=== PATIENT | female | born 1965 | race Caucasian/White ===

== ENCOUNTER 2022-10-03 15:30 | Observation (INO) ==
--- NOTE | 2022-10-03 15:49 | Emergency Department Note ---
Impression & Plan Hypoxia, COPD (chronic obstructive pulmonary disease), Alcohol abuse, Hyperbilirubinemia, Generalized weakness ED Provider Note NAME: RICARDO ARANA AGE: 57 SEX: F : 1965 ARRIVES VIA: Walk-In INFORMANT: Patient, ED PROVIDER(S): Will Greene MD CHIEF COMPLAINT: Weakness, vomiting MEDICAL DECISION MAKING: Patient presents due to concern for weakness and vomiting in the setting of stopping drinking earlier this month. Next IV was established blood work obtained patient was ordered IV fluids IV thiamine folic acid. B12 levels were ordered. Chest x-ray obtained as the patient was at lower oxygen levels at 90% at rest. Patient was placed on small mount of supplemental nasal cannula in triage. Patient was noted to be hypoxemic in the high 80s. This is improved with the supplemental oxygen. Patient was ordered DuoNeb treatments IV fluids as well as steroids and doxycycline. Patient's blood work shows mild white count of 11 with a normal H&H and platelet count. Patient's kidney function is unremarkable. Bilirubin elevated greater than 4. Mild hypokalemia and hyponatremia along with an AST of 68. Of note the patient did have an abnormal EKG but no priors for comparison patient has no chest pains or shortness of breath. Troponin is initially negative. Given the patient's presentation findings weakness and hypoxia I did speak with the on- call hospital service Dr. Vitale and the patient was admitted to the medicine service. Critical Care: I have personally spent 43 minutes of critical care time in direct management of this patient. This includes bedside care, interpretation of diagnostic studies, and testing, discussion with consultants, patient, and family members, and other require inpatient management activities. This 43 minutes is in excess of all separately billable procedures. Prior /Outside records reviewed: I reviewed a pulmonology visit note from July [address] Colin. Differential diagnosis: Infection, dehydration, metabolic abnormality, hypo/hyperglycemia, electrolyte disturbance, anemia, hypoxia, cardiac sources, intracerebral event, toxicologic, neurologic, as well as other pathologies. Diagnostics, as interpreted by me: ECG: Normal sinus rhythm, rate of 93, normal IL and QRS, ST depressions noted. No prior EKGs for comparison. Cardiac monitoring: An order was placed for continuous cardiac monitoring. The monitor shows a rate of 89 with sinus rhythm. Patient was placed on pulse oximetry Medical decision rules: none Imaging studies: See below HPI: Patient presents with increasing weakness and associated fatigue in the setting of stopping drinking about 3 weeks ago. Patient states that she quit cold turkey. The patient states that for the last 2 years she typically drinks 6 Willian loggers nightly but in the last 2 months she was drinking 1/5 every 2 nights. Patient denies any chest pains or shortness of breath but has had nausea and vomiting. The patient quit smoking earlier this month as well. Patient denies any history of drug use. Patient does have a history of alcoholism and had been in and out of rehab. The patient did have a 2-year period of sobriety 4 years to 2 years ago. Patient states she will have some occasional diarrhea. The patient does complain of generalized weakness but no focal deficits. No headache or neck pain. Known h/o COPD and uses inhalers. PAST MEDICAL HISTORY: See Below PAST SURGICAL HISTORY: See Below SOCIAL HISTORY: See Below HOME MEDICATIONS: See Below ALLERGIES: See Below VITALS: See Below PHYSICAL EXAMINATION: GENERAL: Mildly ill in appearance, wearing glasses and nasal cannula in place. EYE EXAM: Normal conjunctiva. PERRL, no anisocoria and EOM's grossly intact w/o pain. OROPHARYNX: Moist mucus membranes, grossly normal dentition. NECK: Supple, no nuchal rigidity, no adenopathy, non-tender. No signs of meningismus. FROM of the neck with good chin to chest and neck extension. No stridor. LUNGS: Clear to auscultation. Normal chest wall mechanics. HEART: NSR, no MRG. ABDOMEN: Abdomen soft, non-tender, no masses, no rebound or guarding. BACK: No CVA TTP. SKIN: No rashes and no bruising. UPPER EXTREMITIES: Upper extremities are grossly normal. LOWER EXTREMITIES: Grossly normal, no edema. NEURO EXAM: A&O x3, cranial nerves II-XII grossly intact, normal speech, moves all 4 extremities. Past Med/Surg History Medical History History of anxiety History of depression Surgical History History of gastric bypass Family History Other Asthma Diabetes Denies family history of Tuberculosis Lung disease Cancer Social History Smoking Status: Former smoker Tobacco Type: Cigarettes packs per day: 0.5; Cigarettes Per Day: 5; Smoking End Date: 09/12/2022; Second Hand Exposure: No; Do You Dip or Chew Tobacco: No; Tobacco Cessation Education Requested by Patient: No Hx Alcohol Use: Yes Alcohol type: hard liquor Hx Substance Use: No Preferred Language: Amharic Communication Ability: Effective Bander And Cellophaner Helper Machine Required: No Beliefs That Will Affect Care: None Current Living Situation: Alone Other Information That Helps Us Care for You: No Feels Safe at Home: Yes Safety Concerns: Feels Safe At This Time Assistive Devices: None Allergies Allergies Allergy/AdvReac Type Severity Reaction Status Date / Time No Known Allergies Allergy Verified 07/26/22 10:39 Home Meds Home Medications Medication Instructions Recorded Confirmed albuterol sulfate 90 mcg/actuation 2 puff inhalation Q6H PRN 06/06/20 10/03/22 aerosol inhaler Shortness Of Breath levothyroxine 100 mcg capsule 88 mcg PO DAILY 06/06/20 10/03/22 biotin 10 mg tablet 10 mg PO DAILY 04/27/22 10/03/22 cyanocobalamin (vitamin B-12) 1,000 mcg PO DAILY 04/27/22 10/03/22 1,000 mcg tablet ergocalciferol (vitamin D2) 1,250 1,250 mcg PO DAILY 04/27/22 10/03/22 mcg (50,000 unit) capsule omeprazole 20 mg capsule,delayed 20 mg PO DAILY PRN Other 04/27/22 10/03/22 release vortioxetine 20 mg tablet 20 mg PO DAILY 04/27/22 10/03/22 (Trintellix) cyanocobalamin (vitamin B-12) 1,000 mcg IM DIRECTED 10/03/22 10/03/22 1,000 mcg/mL injection kit Previous Rx's Medication Instructions Recorded umeclidinium 62.5 mcg-vilanterol See Rx Instructions .Route 06/28/22 25 mcg/actuation powdr for .COMPLEX #60 ea inhalation (Anoro Ellipta) Results & Data (ED) Vital Signs Vital Signs - 24 hr 10/03/22 15:31 10/03/22 15:46 10/03/22 16:08 Temperature 36.6 C Temperature Source Temporal Artery Scan Pulse Rate 114 H 98 H Pulse Rate [Apical] 105 H Respiratory Rate 16 17 Respiratory Effort / Characteristics Non-Labored Spontaneous Non-Labored Spontaneous Respiratory Depth Normal Normal Respiratory Pattern Blood Pressure 102/74 Blood Pressure [Left Arm] 106/77 Blood Pressure Mean 83 Blood Pressure Mean [Left Arm] 86 Pulse Oximetry 90 91 Oxygen Delivery Method Room Air Room Air Oxygen Flow Rate Sepsis Recent Fever Within 48 Hours No Sepsis New/Unexplained Change in Mental Status No Sepsis Action Taken by Nursing No Action Required 10/03/22 16:31 10/03/22 17:24 10/03/22 18:44 Temperature Temperature Source Pulse Rate Pulse Rate [Apical] 85 87 Respiratory Rate 16 18 Respiratory Effort / Characteristics Non-Labored Respiratory Depth Normal Respiratory Pattern Regular Blood Pressure Blood Pressure [Left Arm] 121/81 124/93 Blood Pressure Mean Blood Pressure Mean [Left Arm] 94 103 Pulse Oximetry 94 90 96 Oxygen Delivery Method Nasal Cannula Room Air Oxygen Flow Rate 1 Sepsis Recent Fever Within 48 Hours Sepsis New/Unexplained Change in Mental Status Sepsis Action Taken by Half-Way Medications Current Medication List: was personally reviewed by me Laboratory Data Attestation: I reviewed the patient's lab results. 10/04/22 07:12 10/04/22 07:12 Lab Results 10/03/22 10/03/22 10/03/22 Range/Units 15:55 15:55 15:55 WBC 11.01 H (4.8-10.8) K/ul RBC 4.66 (4.20-5.40) M/uL Hgb 15.3 (12.0-16.0) g/dl Hct 43.5 (37.0-47.0) % MCV 93.3 (80.0-100.0) fL MCH 32.8 (25.0-34.0) pg MCHC 35.2 (32.0-36.0) g/dL RDW Std Deviation 62.9 H (36.4-46.3) fL RDW Coeff of Denia 18.4 H (11.5-14.5) % Plt Count 332 (130-400) K/uL MPV 9.2 L (9.4-12.4) fL Immature Gran % (Auto) 1.8 % Neut % (Auto) 64.4 % Lymph % (Auto) 20.6 % [place] % (Auto) 11.5 % Eos % (Auto) 0.9 % Baso % (Auto) 0.8 % Neut # (Auto) 7.08 H (1.40-6.50) K/uL Lymph # (Auto) 2.27 (1.2-3.4) K/uL [place] # (Auto) 1.27 H (0.11-0.59) K/uL Eos # (Auto) 0.10 (0-0.50) K/uL Baso # (Auto) 0.09 (0-0.2) K/uL Immature Gran # (Auto) 0.20 (0.01-0.20) K/uL Absolute Nucleated RBC 0.06 (0-0.12) K/uL Nucleated RBC % (auto) 0.5 % PT 11.4 (9.0-12.0) Seconds INR 1.0 (0.9-1.1) Sodium 134 L (136-145) mmol/L Potassium 3.1 L (3.5-5.1) mmol/L Chloride 94 L (98-107) mmol/L Carbon Dioxide 27 (21-32) mmol/L Anion Gap 13 H (3-11) BUN 7 (6-23) mg/dl Creatinine 0.60 (0.6-1.2) mg/dl Est Cr Clr Drug Dosing 126.2 ml/min Est GFR ( Amer) 117.3 ml/min Est GFR (Non-Af Amer) 101.2 ml/min BUN/Creatinine Ratio 11.7 (10-20) Glucose 131 H (70-99(Fasting)) mg/dl Calcium 9.3 (8.6-10.3) mg/dl Phosphorus 3.1 (2.5-4.9) mg/dl Magnesium 1.6 L (1.7-2.4) mg/dl Total Bilirubin 4.8 H (0.2-1.0) mg/dl AST 68 H (13-39) U/L ALT 14 (7-52) U/L Alkaline Phosphatase 145 H (34-104) U/L Total Creatine Kinase 19 L (26-192) U/L Troponin I High Sens 5.4 (0-14) pg/ml Total Protein 6.7 (6.0-8.3) gm/dl Albumin 3.4 (3.4-5.0) gm/dl Globulin 3.3 (2.5-4.0) gm/dl Albumin/Globulin Ratio 1.0 (0.9-2) Vitamin B12 (180-914) pg/ml Folate (>5.38) ng/ml Procalcitonin (0-0.5) ng/ml TSH (0.300-4.500) uIu/ml Free T4 (0.61-1.60) ng/dl SARS-CoV-2, RNA, NAAT (NEGATIVE) 10/03/22 10/03/22 10/03/22 Range/Units 15:55 15:55 15:55 WBC (4.8-10.8) K/ul RBC (4.20-5.40) M/uL Hgb (12.0-16.0) g/dl Hct (37.0-47.0) % MCV (80.0-100.0) fL MCH (25.0-34.0) pg MCHC (32.0-36.0) g/dL RDW Std Deviation (36.4-46.3) fL RDW Coeff of Denia (11.5-14.5) % Plt Count (130-400) K/uL MPV (9.4-12.4) fL Immature Gran % (Auto) % Neut % (Auto) % Lymph % (Auto) % [place] % (Auto) % Eos % (Auto) % Baso % (Auto) % Neut # (Auto) (1.40-6.50) K/uL Lymph # (Auto) (1.2-3.4) K/uL [place] # (Auto) (0.11-0.59) K/uL Eos # (Auto) (0-0.50) K/uL Baso # (Auto) (0-0.2) K/uL Immature Gran # (Auto) (0.01-0.20) K/uL Absolute Nucleated RBC (0-0.12) K/uL Nucleated RBC % (auto) % PT (9.0-12.0) Seconds INR (0.9-1.1) Sodium (136-145) mmol/L Potassium (3.5-5.1) mmol/L Chloride (98-107) mmol/L Carbon Dioxide (21-32) mmol/L Anion Gap (3-11) BUN (6-23) mg/dl Creatinine (0.6-1.2) mg/dl Est Cr Clr Drug Dosing ml/min Est GFR ( Amer) ml/min Est GFR (Non-Af Amer) ml/min BUN/Creatinine Ratio (10-20) Glucose (70-99(Fasting)) mg/dl Calcium (8.6-10.3) mg/dl Phosphorus (2.5-4.9) mg/dl Magnesium (1.7-2.4) mg/dl Total Bilirubin (0.2-1.0) mg/dl AST (13-39) U/L ALT (7-52) U/L Alkaline Phosphatase (34-104) U/L Total Creatine Kinase (26-192) U/L Troponin I High Sens (0-14) pg/ml Total Protein (6.0-8.3) gm/dl Albumin (3.4-5.0) gm/dl Globulin (2.5-4.0) gm/dl Albumin/Globulin Ratio (0.9-2) Vitamin B12 > 1500 H (180-914) pg/ml Folate 10.74 (>5.38) ng/ml Procalcitonin 0.47 (0-0.5) ng/ml TSH 7.898 H (0.300-4.500) uIu/ml Free T4 1.15 (0.61-1.60) ng/dl SARS-CoV-2, RNA, NAAT (NEGATIVE) 10/03/22 Range/Units 18:20 WBC (4.8-10.8) K/ul RBC (4.20-5.40) M/uL Hgb (12.0-16.0) g/dl Hct (37.0-47.0) % MCV (80.0-100.0) fL MCH (25.0-34.0) pg MCHC (32.0-36.0) g/dL RDW Std Deviation (36.4-46.3) fL RDW Coeff of Denia (11.5-14.5) % Plt Count (130-400) K/uL MPV (9.4-12.4) fL Immature Gran % (Auto) % Neut % (Auto) % Lymph % (Auto) % [place] % (Auto) % Eos % (Auto) % Baso % (Auto) % Neut # (Auto) (1.40-6.50) K/uL Lymph # (Auto) (1.2-3.4) K/uL [place] # (Auto) (0.11-0.59) K/uL Eos # (Auto) (0-0.50) K/uL Baso # (Auto) (0-0.2) K/uL Immature Gran # (Auto) (0.01-0.20) K/uL Absolute Nucleated RBC (0-0.12) K/uL Nucleated RBC % (auto) % PT (9.0-12.0) Seconds INR (0.9-1.1) Sodium (136-145) mmol/L Potassium (3.5-5.1) mmol/L Chloride (98-107) mmol/L Carbon Dioxide (21-32) mmol/L Anion Gap (3-11) BUN (6-23) mg/dl Creatinine (0.6-1.2) mg/dl Est Cr Clr Drug Dosing ml/min Est GFR ( Amer) ml/min Est GFR (Non-Af Amer) ml/min BUN/Creatinine Ratio (10-20) Glucose (70-99(Fasting)) mg/dl Calcium (8.6-10.3) mg/dl Phosphorus (2.5-4.9) mg/dl Magnesium (1.7-2.4) mg/dl Total Bilirubin (0.2-1.0) mg/dl AST (13-39) U/L ALT (7-52) U/L Alkaline Phosphatase (34-104) U/L Total Creatine Kinase (26-192) U/L Troponin I High Sens (0-14) pg/ml Total Protein (6.0-8.3) gm/dl Albumin (3.4-5.0) gm/dl Globulin (2.5-4.0) gm/dl Albumin/Globulin Ratio (0.9-2) Vitamin B12 (180-914) pg/ml Folate (>5.38) ng/ml Procalcitonin (0-0.5) ng/ml TSH (0.300-4.500) uIu/ml Free T4 (0.61-1.60) ng/dl SARS-CoV-2, RNA, NAAT NEGATIVE (NEGATIVE) Administered Medications Heparin Sodium (Porcine) (Heparin Sod 5,000 Unit/0.5 Ml Vial) 5,000 units SQ Q12 [facility] Stop: 11/02/22 21:10 Last Admin: 10/04/22 08:32 Dose: 5,000 units Documented By: Admin: 10/03/22 22:43 Dose: 5,000 units Documented By: JOSHUA Parenteral Electrolytes (Plasma-Lyte A Ph 7.4) 1,000 mls @ 125 mls/hr IV .Q8H [facility] Stop: 11/02/22 18:59 Last Admin: 10/04/22 11:40 Dose: 125 mls/hr Documented By: Infusion: 10/04/22 11:40 Dose: 125 mls/hr Documented By: Admin: 10/04/22 04:27 Dose: 125 mls/hr Documented By: Infusion: 10/04/22 04:27 Dose: 125 mls/hr Documented By: Infusion: 10/03/22 22:43 Dose: 125 mls/hr Documented By: Infusion: 10/03/22 22:00 Dose: 0 mls/hr Documented By: Admin: 10/03/22 20:10 Dose: 125 mls/hr Documented By: MORRO Pantoprazole Sodium 40 mg/ (Syringe) 10 mls @ 5 mls/min IV DAILY@1100 [facility] Stop: 11/03/22 10:59 Last Admin: 10/04/22 11:37 Dose: 5 mls/min Documented By: TIFF Levothyroxine Sodium (Levothyroxine Sodium 88 Mcg Tablet) 88 mcg PO DAILYBB [facility] Stop: 11/03/22 06:29 Last Admin: 10/04/22 04:27 Dose: 88 mcg Documented By: JOSHUA Miscellaneous (Vortioxetine [Trintellix] 20 Mg - Order Awaiting Action) 1 each N/A QS [facility] Stop: 11/03/22 00:00 Last Admin: 10/04/22 07:22 Dose: Not Given Documented By: Admin: 10/04/22 00:34 Dose: Not Given Documented By: JOSHUA Umeclidinium/Vilanterol (Umeclidinium/Vilanterol 62.5/25mcg 7 Puffs/Inhaler) 1 puffs INH DAILY [facility] Stop: 11/03/22 08:59 Last Admin: 10/04/22 08:33 Dose: 1 puffs Documented By: AMS Discontinued Medications Albuterol (Albut/Ipratrop 3mg/0.5mg Neb 3 Ml Vial) 3 ml NEB NOW STA; Protocol Stop: 10/03/22 17:47 Last Admin: 10/03/22 18:15 Dose: 3 ml Documented By: SHIRLEY Doxycycline Hyclate (Doxycycline Hyclate 100 Mg Cap) 100 mg PO NOW STA Stop: 10/03/22 17:47 Last Admin: 10/03/22 18:15 Dose: 100 mg Documented By: SHIRLEY Sodium Chloride (Nss 1000ml) 1,000 mls @ 999 mls/hr IV .Q1H1M [facility] Stop: 10/03/22 17:15 Last Infusion: 10/03/22 17:28 Dose: 0 mls/hr Documented By: Admin: 10/03/22 16:27 Dose: 999 mls/hr Documented By: SHIRLEY Folic Acid 1 mg/ Syringe 10 mls @ 5 mls/min IV NOW STA Stop: 10/03/22 16:14 Last Admin: 10/03/22 17:50 Dose: 5 mls/min Documented By: SHIRLEY Thiamine HCl 200 mg/ Sodium (Chloride) 52 mls @ 210 mls/hr IV NOW STA Stop: 10/03/22 16:27 Last Infusion: 10/03/22 17:28 Dose: 0 mls/hr Documented By: Admin: 10/03/22 16:49 Dose: 210 mls/hr Documented By: YOHANNES Sodium Chloride (Nss 1000ml) 1,000 mls @ 999 mls/hr IV .Q1H1M ONE Stop: 10/03/22 19:33 Last Infusion: 10/03/22 19:39 Dose: 0 mls/hr Documented By: Admin: 10/03/22 18:35 Dose: 999 mls/hr Documented By: SHIRLEY Potassium Chloride (K Ghanshyam / Wtr) 10 meq in 100 mls @ 100 mls/hr IV Q1H [facility] Stop: 10/03/22 22:59 Last Infusion: 10/04/22 02:04 Dose: 0 mls/hr Documented By: Admin: 10/04/22 00:49 Dose: 100 mls/hr Documented By: Infusion: 10/04/22 00:44 Dose: 0 mls/hr Documented By: Admin: 10/03/22 23:44 Dose: 100 mls/hr Documented By: Infusion: 10/03/22 23:42 Dose: 100 mls/hr Documented By: Admin: 10/03/22 22:42 Dose: 100 mls/hr Documented By: Infusion: 10/03/22 21:30 Dose: 0 mls/hr Documented By: Admin: 10/03/22 19:50 Dose: 100 mls/hr Documented By: MORRO Magnesium Sulfate/Dextrose (Magnesium Sulfate / D5w) 1 gm in 100 mls @ 50 mls/hr IV Q2H [facility] Stop: 10/04/22 00:59 Last Infusion: 10/04/22 02:09 Dose: 0 mls/hr Documented By: Admin: 10/04/22 00:32 Dose: 50 mls/hr Documented By: Infusion: 10/04/22 00:32 Dose: 50 mls/hr Documented By: Admin: 10/03/22 22:42 Dose: 50 mls/hr Documented By: Infusion: 10/03/22 22:00 Dose: 0 mls/hr Documented By: Admin: 10/03/22 19:51 Dose: 50 mls/hr Documented By: MORRO Ioversol (Optiray 320 100ml) 93 ml IV ONCE ONE Stop: 10/03/22 22:16 Last Admin: 10/03/22 22:15 Dose: 93 ml Documented By: KUMAR Methylprednisolone (Methylprednisolone 125 Mg/2 Ml Vial) 60 mg IV NOW STA Stop: 10/03/22 17:47 Last Admin: 10/03/22 18:15 Dose: 60 mg Documented By: SHIRLEY Ondansetron HCl (Ondansetron Inj 2 Mg/Ml 2 Ml Vial) 4 mg IV NOW STA Stop: 10/03/22 16:14 Last Admin: 10/03/22 16:26 Dose: 4 mg Documented By: SHIRLEY Imaging Data Radiologist's Impression: Chest X-Ray 10/03/22 16:13 XR chest 1V portable CLINICAL HISTORY: weakness COMPARISON STUDY: Chest radiograph October 12, 2019. FINDINGS: Lung volumes are normal. Lungs are clear. There is no pneumothorax or pleural effusion. Cardiac size is normal. Mediastinal contours are normal. There is no evidence for pulmonary edema. IMPRESSION: No acute cardiopulmonary findings. ACT 112: Negative or not required by law. Electronically signed by: Hank Jeffers M.D. 10/03/2022 5:01 PM Liver Ultrasound 10/03/22 18:31 US liver CLINICAL HISTORY: Nausea and vomiting. Elevated bilirubin. COMPARISON STUDY: No previous studies for comparison. FINDINGS: Hepatic echogenicity is increased. There is mild hepatomegaly. No hepatic lesions are identified. Several suspected gallstones within the gallbladder are present. There is no gallbladder wall thickening. No sonographic Goldstein sign was elicited. The pancreas is obscured by overlying bowel gas. A normal-appearing common bile duct is not visualized. There is no intrahepatic biliary ductal dilatation. There is an indeterminate tubular anechoic structure measuring at least 7.8 x 2.2 cm along the left lobe of the liver. This appears to be separate from the gallbladder. The pancreas is obscured by bowel gas. There is no right hydronephrosis. IMPRESSION: 1. Hepatic steatosis and mild hepatomegaly. 2. Probable cholelithiasis. No evidence for acute cholecystitis. 3. Tubular anechoic structure measuring at least 7.8 x 2.2 cm along the left lobe of the liver which appears to be separate from the gallbladder. This is indeterminate and could represent a portion of the bowel. Although less likely, a dilated common bile duct cannot be completely excluded. A cystic lesion is also within the differential. A CT of the abdomen with IV contrast is recommende d for further evaluation. 4. Obscured pancreas. ACT 112: Negative or not required by law. Electronically signed by: Hank Jeffers M.D. 10/03/2022 7:45 PM Discharge Plan Visit Data Chief Complaint: Illness Stated Complaint: BODY WEAKNESS,LACK APPETITE,VOMIT ED Provider: Will Greene Discharge Problem: Hypoxia, COPD (chronic obstructive pulmonary disease), Alcohol abuse, Hyperbil irubinemia, Generalized weakness Patient Disposition: Admitted As Inpatient Discharge Instructions Interventions: ED Discharge Assessment Last Done: 10/03/22 20:32 COPD (chronic obstructive pulmonary disease) Qualifiers: COPD type: unspecified COPD Qualified Code(s): J44.9 - Chronic obstructive pulmonary disease, unspecified
[2022-10-03] MEDS ORDERED: ONDANSETRON INJ 2 MG/ML 2 ML VIAL IV STA (16:13)
[2022-10-03] MEDS ORDERED: THIAMINE HCL 200 MG in SODIUM CHLORIDE 0.9% 50 ML IV STA (16:13)
[2022-10-03] MEDS ORDERED: FOLIC ACID 1 MG in SYRINGE 9.8 ML IV STA (16:13)
[2022-10-03] MEDS ORDERED: SODIUM CHLORIDE 0.9% 1000ML 1,000 ML IV SCH (16:15)
[2022-10-03 16:31] LABS: Basophils # (auto) 0.09 K/uL (0-0.2); Basophils % (auto) 0.8 %; Eosinophils % (auto) 0.9 %; Hematocrit (blood only) 43.5 % (37.0-47.0); Hemoglobin 15.3 g/dl (12.0-16.0); Immature Granulocytes % (auto) 1.8 %; Lymphocytes # (auto) 2.27 K/uL (1.2-3.4); Lymphocytes % (auto) 20.6 %; Mean Corpuscular Hemoglobin 32.8 pg (25.0-34.0); Mean Corpuscular Hgb Conc 35.2 g/dL (32.0-36.0); Mean Corpuscular Volume 93.3 fL (80.0-100.0); Mean Platelet Volume 9.2 fL (9.4-12.4); Monocytes # (auto) 1.27 K/uL (0.11-0.59); Monocytes % (auto) 11.5 %; Neutrophils # (auto) 7.08 K/uL (1.40-6.50); Neutrophils % (auto) 64.4 %; Nucleated RBC # (auto) 0.06 K/uL (0-0.12); Nucleated RBC % (auto) 0.5 %; Platelet Count 332 K/uL (130-400); RDW Coefficient of Variation 18.4 % (11.5-14.5); RDW Standard Deviation 62.9 fL (36.4-46.3); Red Blood Count 4.66 M/uL (4.20-5.40); White Blood Count 11.01 K/ul (4.8-10.8)
[2022-10-03 16:47] LABS: Albumin Level 3.4 gm/dl (3.4-5.0); BUN Creatinine Ratio 11.7 (10-20); Bilirubin,Total 4.8 mg/dl (0.2-1.0); Calcium 9.3 mg/dl (8.6-10.3); Creatinine Clr Calc Pharmacy 126.2 ml/min; Est GFR (African American) 117.3 ml/min; Est GFR (Non-African American) 101.2 ml/min; Globulin 3.3 gm/dl (2.5-4.0); Magnesium 1.6 mg/dl (1.7-2.4); Phosphorus 3.1 mg/dl (2.5-4.9); Potassium 3.1 mmol/L (3.5-5.1); Total Protein 6.7 gm/dl (6.0-8.3)
[2022-10-03 16:51] LABS: Troponin I High Sensitivity 5.4 pg/ml (0-14)
[2022-10-03 16:59] LABS: Thyroid Stimulating Hormone 7.898 uIu/ml (0.300-4.500)
[2022-10-03 17:02] LABS: Prothrombin Time 11.4 Seconds (9.0-12.0)
--- NOTE | 2022-10-03 17:02 | XRay Report ---
XR chest 1V portable CLINICAL HISTORY: weakness COMPARISON STUDY: Chest radiograph October 12, 2019. FINDINGS: Lung volumes are normal. Lungs are clear. There is no pneumothorax or pleural effusion. Car diac size is normal. Mediastinal contours are normal. There is no evidence for pulmonary edema. IMPRESSION: No acute cardiopulmonary findings. ACT 112: Negative or not required by law. Electronically signed by: Hank Jeffers M.D. 10/03/2022 5:01 PM
[2022-10-03 17:06] LABS: Folate (Folic Acid),Ser orPlas 10.74 ng/ml (>5.38)
[2022-10-03 17:07] LABS: Vitamin B12 > 1500 pg/ml (180-914)
[2022-10-03 17:45] LABS: T4 Free Thyroxine 1.15 ng/dl (0.61-1.60)
[2022-10-03] MEDS ORDERED: DOXYCYCLINE HYCLATE 100 MG CAP PO STA (17:46)
[2022-10-03] MEDS ORDERED: methylPREDNISolone 125 MG/2 ML VIAL IV STA (17:46)
[2022-10-03] MEDS ORDERED: ALBUT/IPRATROP 3MG/0.5MG NEB 3 ML VIAL NEB STA (17:46)
[2022-10-03] MEDS ORDERED: SODIUM CHLORIDE 0.9% 1000ML 1,000 ML IV ONE (18:33)
--- NOTE | 2022-10-03 18:41 | History & Physical Report ---
Date of Service October 03, 2022 Assessment & Plan (1) Abdominal pain: Plan: Abdominal pain,? Alcoholic hepatitis versus cholelithiasis Patient with high alcohol intake of a handle every other day for 2 months of whiskey intake, however last ingestion was 09/12 (21 days ago). Has felt generally washed out, tired, with abdominal pain and gets severely nauseous with any attempted meals. Does have right upper quadrant pain DDx includes gastritis, alcoholic hepatitis (? Downtrending as AST 68), and cholelithiasis/choledocholithiasis Liver ultrasound ordered on admission Patient is nontoxic and hemodynamically stable N.p.o. pending liver ultrasound results 21 days out low suspicion for DTs/withdrawal, she has never had a seizure or DTs in the past - Leukocytosis of 11.1 Potassium 3.1, repeat Magnesium 1.6, replete Bilirubin 4.8, AST 68, ALT 14 TSH elevated with normal free T4 B12 elevated consistent with repletion, folate normal Procalcitonin pending CXR: No acute findings Acute on chronic COPD, asthma overlap Saw pulmonary 07/2022. Was looking into Anoro alternative coverage Continue Anoro/equivalent - reports she felt she was breathing actually must better las tfew days. - No wheezing, felt she was breathing well Did have mild hypoxia on admission was started on steroids given a breathing treatment. Will defer these as she feels she is breathing better than her normal baseline and is saturating well on room air at time of Past history of chest pain Without recent chest pain, chest pressure, angina Cardiac catheterization 04/2022: Mild nonobstructive coronary disease, very small apical LAD with diffuse disease that tapers to apex, normal filling pressures. No high risk coronary disease recommended for risk modification and trial of coronary vasodilators for possible vasospasm. - EKG: Normal sinus rhythm, ST and T wave diffuse nonspecific abnormality Hypothyroidism Synthroid continued Impaired fasting glucose - Goal bsg 110-140 -No history of antiglycemic treatment Glucose 131 on admission Trend, if greater than 140 can add SSI. Patient is currently n.p.o. Obsessive-compulsive disorder Bupropion, BuSpar, Trintellix continued S/p gastric surgery Noted, at risk for ulcers and malnutrition. Patient denies bleeding, notes that her bowel movements are more orange color and the color of fireball when she was drinking Sleep apnea - CPAP Tobacco use -Declines patch Disposition: Medical/surgical Diet: N.p.o. CODE STATUS: Full code (2) Pulmonary nodule: (3) Tobacco abuse: (4) COPD (chronic obstructive pulmonary disease): History of Present Illness Primary Care Provider: Katy Borrego MD And is a 57-year-old female with past medical history of COPD, tobacco abuse, pulmonary nodules, and sinusitis who presents with weakness, vomiting in the setting of alcohol cessation Mary reports she is a 'barely recovering alcoholic' went cold turkey September 12. Was drinking a handle over 2 days of whiskey for 2 months. Prior to 2 month swould drink a few beers in the evening with some shots of fireball. Once school went out 'los tit a little bit.' Got through [facility] 2-3 day with no seizures, no DTs, no tremors 'and no nothing' but has just fel tprogressively more tired and fatigued. Has not been hungry. Vomits at the near thought of food and sleeping all day no fevers or chills No pain, but severe nausea after eating BMs often very loose and ark orange. No melena/coffee ground BMS Urine has been very dark orange No chest pain or chest pressure No liver problems to her knowledge, no hsitory of cholecystectomy Hx of gastric bipass 2004. Trintellex for depression, works well Medical History: Reviewed Medications: Reviewed Surgical History: Reviewed Family history: Reviewed Allergies: Reviewed Social History: Etoh abuse in remission Code Status: Full Code Allergies Allergy/AdvReac Type Severity Reaction Status Date / Time No Known Allergies Allergy Verified 07/26/22 10:39 Home Medications Medication Instructions Recorded Confirmed Type albuterol sulfate 90 mcg/actuation 2 puff inhalation Q6H PRN 06/06/20 10/03/22 History aerosol inhaler Shortness Of Breath levothyroxine 100 mcg capsule 88 mcg PO DAILY 06/06/20 10/03/22 History biotin 10 mg tablet 10 mg PO DAILY 04/27/22 10/03/22 History cyanocobalamin (vitamin B-12) 1,000 mcg PO DAILY 04/27/22 10/03/22 History 1,000 mcg tablet ergocalciferol (vitamin D2) 1,250 1,250 mcg PO DAILY 04/27/22 10/03/22 History mcg (50,000 unit) capsule omeprazole 20 mg capsule,delayed 20 mg PO DAILY PRN Other 04/27/22 10/03/22 History release vortioxetine 20 mg tablet 20 mg PO DAILY 04/27/22 10/03/22 History (Trintellix) umeclidinium 62.5 mcg-vilanterol See Rx Instructions .Route 06/28/22 10/03/22 Rx 25 mcg/actuation powdr for .COMPLEX #60 ea inhalation (Anoro Ellipta) cyanocobalamin (vitamin B-12) 1,000 mcg IM DIRECTED 10/03/22 10/03/22 History 1,000 mcg/mL injection kit Past Med/Surg History Medical History (Updated 10/03/22 @ 18:49 by Yung Vitale MD) History of anxiety History of depression Surgical History (Updated 06/06/20 @ 14:23 by TARAN Randall) History of gastric bypass Family History (Updated 06/06/20 @ 14:24 by TARAN Randall) Other Asthma Diabetes Denies family history of Tuberculosis Lung disease Cancer Social History (Updated 06/06/20 @ 14:23 by TARAN Randall) Smoking Status: Former smoker Tobacco Type: Cigarettes packs per day: 0.5; Cigarettes Per Day: 5; Hx Alcohol Use: Yes Alcohol type: beer Hx Substance Use: No Current Living Situation: Family Feels Safe at Home: Yes Review of Systems Review of Systems: All systems reviewed & are unremarkable except as noted in HPI & below Physical Exam Physical Exam: General: A&Ox3. NAD. Cooperative. No tremors HEENT: Atraumatic, normocephalic. Pulm: Trace end expiratory wheeze, otherwise cleari. Symmetrical chest rise. No increased work of breathing. No respiratory distress. Cardiac: RRR, -mrg. Radial pulses intact and symmetrical. Abdominal: RUQ TTP, nondistended, soft. BS present. Results & Data Results & Data Vital Signs (Past 12 Hours) Vital Signs Temp Pulse Pulse Resp BP BP Pulse Ox 10/03/22 17:24 85 16 121/81 90 10/03/22 16:31 94 10/03/22 16:08 98 H 10/03/22 15:46 105 H 17 106/77 91 10/03/22 15:31 36.6 C 114 H 16 102/74 90 O2 Del Method O2 Flow Rate 10/03/22 17:24 10/03/22 16:31 Nasal Cannula 1 10/03/22 16:08 10/03/22 15:46 Room Air 10/03/22 15:31 Room Air PG Care Time/CCT Total # of Minutes Spent Total Time Spent with Patient: Total time spent is greater than 50% in coordination of care (as documented) at patient's floor/unit and/or counseling patient: Coding Level of Care Code 77987 INT INP/OBS CARE 3/75MIN Diagnoses Abdominal pain R10.9 Pulmonary nodule R91.1 Tobacco abuse Z72.0 COPD (chronic obstructive pulmonary disease) J44.9
--- NOTE | 2022-10-03 19:47 | Ultrasound Report ---
US liver CLINICAL HISTORY: Nausea and vomiting. Elevated bilirubin. COMPARISON STUDY: No previous studies for comparison. FINDINGS: Hepatic echogenicity is increased. There is mild hepatomegaly. No hepatic lesions are ident ified. Several suspected gallstones within the gallbladder are present. There is no gallbladder wall thickening. No sonographic Goldstein sign was elicited. The pancreas is obscured by overlying bowel gas. A normal-appearing common bile duct is not visualized. There is no intrahepatic biliary ductal dilat ation. There is an indeterminate tubular anechoic structure measuring at least 7.8 x 2.2 cm along the left lobe of the liver. This appears to be separate from the gallbladder. The pancreas is obscured b y bowel gas. There is no right hydronephrosis. IMPRESSION: 1. Hepatic steatosis and mild hepatomegaly. 2. Probable cholelithiasis. No evidence for acute cholecystitis. 3. Tubular anechoic structure measuring at least 7.8 x 2.2 cm along the left lobe of the liver which appears to be separate from the gallbladder. This is indeterminate and could represent a portion of t he bowel. Although less likely, a dilated common bile duct cannot be completely excluded. A cystic le nevaeh is also within the differential. A CT of the abdomen with IV contrast is recommended for further evaluation. 4. Obscured pancreas. ACT 112: Negative or not required by law. Electronically signed by: Hank Jeffers M.D. 10/03/2022 7:45 PM
[2022-10-03] MEDS: POTASSIUM CHLORIDE / WTR 10 MEQ/100 ML PLCT IV SCH ×3 (19:50→23:44)
[2022-10-03] MEDS: MAGNESIUM SULFATE / D5W 1 GM/100 ML BAG IV SCH ×2 (19:51→22:42)
[2022-10-03] MEDS: PLASMA-LYTE A 1,000 ML IV SCH (20:10)
[2022-10-03] MEDS ORDERED: ALBUTEROL HFA 8 GM INHALER INH PRN (21:11)
[2022-10-03] MEDS ORDERED: POLYETHYLENE (MIRALAX) 17 GM PACK PO PRN (21:11)
[2022-10-03] MEDS ORDERED: ONDANSETRON INJ 2 MG/ML 2 ML VIAL IV PRN (21:11)
[2022-10-03] MEDS ORDERED: NON-FORMULARY MEDICATION (Cyanocobalamin (Vitamin B-12) 1,000 mcg/mL Kit) IM SCH (21:11)
[2022-10-03] MEDS ORDERED: ACETAMINOPHEN 325 MG TAB PO PRN (21:11)
[2022-10-03] MEDS ORDERED: PANTOprazole 40 MG TAB PO PRN (21:17)
[2022-10-03] MEDS ORDERED: OPTIRAY 320 100ml IV ONE (22:15)
[2022-10-03] MEDS: HEPARIN SOD 5,000 UNIT/0.5 ML VIAL SQ SCH (22:43)
--- NOTE | 2022-10-03 22:52 | CT Scan Report ---
Exam(s): CT ABDOMEN + PELVIS With Contrast IV Amt: 93 ml optiray 320 EXAM: CT Abdomen and Pelvis With Intravenous Contrast CLINICAL HISTORY: abn US f/u, elevated bili, ab pain. TECHNIQUE: Axial computed tomography images of the abdomen and pelvis with intravenous contrast. Automated exposure control was utilized for the study. A dose lowering technique was utilized adhering to the principles of ALARA. CONTRAST: Patient received 93 ml optiray 320 of IV contrast COMPARISON: The reported previous ultrasound is unavailable for review at the time of image interpretation. No pertinent prior imaging available. FINDINGS: Lung bases: Unremarkable. No mass. No consolidation. ABDOMEN: Liver: Hepatomegaly with evidence of hepatic steatosis. No focal intrahepatic abnormality definitively identified. Gallbladder and bile ducts: There are granular subcentimeter hyperdense presumed gallstones noted layering posteriorly in the gallbladder. The gallbladder is only mildly filled with fluid. No gallbladder wall thickening identified. No biliary dilatation. Pancreas: The pancreas demonstrates normal enhancement. No peripancreatic inflammation. No ductal dilation. Spleen: Unremarkable. No splenomegaly. Adrenals: Unremarkable. No mass. Kidneys and ureters: Unremarkable. No solid mass. No hydronephrosis. Stomach and bowel: Postsurgical changes consistent with previous gastric bypass. No bowel obstruction. No definite asymmetric bowel mucosal abnormality, accounting for regions of colonic decompression. No diverticulosis. PELVIS: Appendix: A normal caliber appendix is noted medial to the cecum in the right lower quadrant. Bladder: Unremarkable. No mass. Reproductive: Unremarkable as visualized. ABDOMEN and PELVIS: Intraperitoneal space: Unremarkable. No free air. No significant fluid collection. Bones/joints: No acute fracture. No dislocation. Soft tissues: Unremarkable. Vasculature: Unremarkable. No abdominal aortic aneurysm. Lymph nodes: Unremarkable. No enlarged lymph nodes. IMPRESSION: 1. Hepatomegaly with evidence of hepatic steatosis. No focal intrahepatic abnormality definitively identified. 2. There are granular subcentimeter hyperdense presumed gallstones noted layering posteriorly in the gallbladder. The gallbladder is only mildly filled with fluid. No gallbladder wall thickening identified. No biliary dilatation. Electronically signed by: Grzegorz Westbrook MD 10/03/22 22:51 PM
[2022-10-04] MEDS: MAGNESIUM SULFATE / D5W 1 GM/100 ML BAG IV SCH (00:32)
[2022-10-04] MEDS: POTASSIUM CHLORIDE / WTR 10 MEQ/100 ML PLCT IV SCH (00:49)
[2022-10-04 02:39] LABS: Appearance Urine Clear (Clear); Bacteria Urine Automated Negative (Negative); Blood Urine Negative (Negative); Color Urine Dark Yellow; Epithelial Cell Urine Auto >30 /lpf (0-5); Glucose Urine UA Negative (Negative); Ketones Urine 2+ (Negative); Leukocyte Esterase Urine Negative (Negative); Nitrite Urine Positive (Negative); Protein Urine Negative (Negative); Specific Gravity Urine > 1.045 (1.000-1.030); Urobilinogen Urine Positive (Negative); pH Urine 6.5 (4.5-7.5)
[2022-10-04 02:42] LABS: Bilirubin Urine 2+ (Negative)
[2022-10-04 02:53] LABS: Mucus Urine Present (None Prsent); RBC Urine Automated 0-4 /hpf (0-4)
[2022-10-04] MEDS: PLASMA-LYTE A 1,000 ML IV SCH ×2 (04:27→11:40)
[2022-10-04] MEDS: LEVOTHYROXINE SODIUM 88 MCG TABLET PO SCH (04:27)
--- NOTE | 2022-10-04 07:26 | Hospitalist Progress Note ---
Date of Service October 04, 2022 Assessment & Plan (1) Abdominal pain: Plan: 57 year old female w/ past medical history of alcoholism (approx a handle every 2 days but has since stopped drinking, last ingestion 22 days ago 09/12), COPD and asthma, gastric bypass, and OCD presented with several weeks of nausea and weakness. On exam had RUQ abdominal pain to palpation. Neuro exam showed right side lower limb weakness compared to left consistent with patient's report of generalized weakness worst in her right leg. Nausea and abdominal pain with AUD: - 21 days out low suspicion for DTs/withdrawal, she has never had a seizure or DTs in the past. -On admission - mildly elevated liver enzymes (AST 68, ALT normal at 14) -unremarkable imaging (liver ultrasound and abd CT 10/03). Bilirubin 4.8, AST 68, ALT 14 -- Repeat CMP in AM - Per GI, recommend supportive care for now with fluids and nausea management, - Zofran as needed - PPI IV daily - Advance diet to clear liquid - Nausea likely from AUD - Fluids reduced to 60ml/hr Concern of Acute on chronic COPD, asthma overlap exacerbation Hypoxia on admission Saw pulmonary 07/2022. Continue Anoro/equivalent - reports she felt she was breathing actually much better last few days. Given a dose of methylpred on admission. - Continue home inhalers. - O2 3L NC - wean as tolerated. - Consider 2 step Generalized weakness: - generalized weakness since the end of June; - worse since she quit drinking at the beginning of September. TSH elevated with normal free T4 - ensure med compliance on discharge - [facility] 04/2022 - mild nonobstructive ds - Will check BNP level - Check Ferritin level considering h/o Gastric bypass - CBC, BMP, in AM - Consider PT/OT Weight loss: - Lost close to 12kg in the last 6 weeks, since her last appointment with her PCP. -Due to her nausea she has had poor PO intake for several weeks. -She reports having had <1 meal per day. Yesterday she had 1/2 a bottle of ensure. - Protein and albumin w/in normal limits Hypothyroidism TSH 7. Suspect inability to stay compliant likely causing. Should recheck in 2-3 wks. - Synthroid continued Obsessive-compulsive disorder Bupropion, BuSpar, Trintellix continued S/p gastric surgery - GI consulted, see above for recs Sleep apnea - CPAP Disposition: Medical/surgical Electrolytes: Potassium 3.1, repleated to 4.1; Magnesium 1.6, repleted to 2.3 Diet: Clear liquid CODE STATUS: Full code (2) COPD (chronic obstructive pulmonary disease): (3) Tobacco abuse: (4) Pulmonary nodule: Admission and Anticipated Discharge Date Admission Date: October 03, 2022 Supervising Physician Co-Signing Physician Notes Medical Student Supervision Note: I was personally present during medical student patient encounter and independently interviewed and examined the patient and verified the alva history and physical, reviewed labs and image studies, discussed the case with China palmer and agree with the findings and care plan. Intractable nausea with abdominal pain and weight loss - GI evaluated. symptomatic management. presentation likely from AUD. advanced diet to clears. Weakness - no focal findings. replete electrolytes. compliance with Synthroid and recheck labs. check ferritin. check bnp though no sign of fluid overload. Hypoxia on admission with h/o asthma - ? mild exacerbation - s/p IV steroids in ED. continue home inhalers. wean O2 Subjective 10/04: This morning Magnolia is feeling well. She says that her nausea and weakness seem better than they had before she came to the hospital, but admits that she has not "tested them" by eating or by walking around. She is not complaining of any pain. She reports her abdomen as only being painful when palpated, and her nausea as only present when she is eating. Her last bowel movement was 2 days ago and was soft and formed. Her last meal was 1/2 a bottle of ensure on 10/03. She has been having no pain with urination, but she reports that it is still dark. Review of Systems Review of Systems: As per HPI. Physical Exam Physical Exam: Constitutional: Patient in no acute distress Eyes: PERRL, conjunctivae normal, anicteric sclerae Respiratory: normal respiratory effort, lungs clear to auscultation Cardiovascular: RRR, no murmur, no edema Gastrointestinal (Abdomen): normal bowel sounds. Tender to palpation in RUQ. Hepatomegaly. Soft, no guarding or rigidity. Skin: no rashes, warm and dry. Bruising present on forearms Neurologic: PERRL, EOMI, no face palsy, no dysarthria. Strength 5/5 on upper and left lower limbs, 4/5 on right LL. Psychiatric: A+Ox3, euthymic affect Results & Data Results & Data Vital Signs (Past 12 Hours) Vital Signs Temp Pulse Pulse Pulse Resp BP BP 10/04/22 07:23 37.0 C 81 15 120/81 10/04/22 05:12 37.0 C 83 16 138/82 10/04/22 01:45 37.1 C 83 18 156/87 H 10/03/22 21:13 10/03/22 21:13 36.7 C 86 18 121/81 10/03/22 20:18 83 10/03/22 19:53 36.8 C 86 16 120/84 Pulse Ox O2 Del Method O2 Flow Rate 10/04/22 07:23 95 Nasal Cannula 3 10/04/22 05:12 94 Room Air 10/04/22 01:45 94 Nasal Cannula 2 10/03/22 21:13 Nasal Cannula 2 10/03/22 21:13 93 Nasal Cannula 2 10/03/22 20:18 10/03/22 19:53 95 Nasal Cannula 2
[2022-10-04 07:36] LABS: Basophils # (auto) 0.04 K/uL (0-0.2); Basophils % (auto) 0.5 %; Hematocrit (blood only) 39.1 % (37.0-47.0); Hemoglobin 13.1 g/dl (12.0-16.0); Immature Granulocytes # (auto) 0.24 K/uL (0.01-0.20); Lymphocytes # (auto) 1.15 K/uL (1.2-3.4); Lymphocytes % (auto) 14.2 %; Mean Corpuscular Hemoglobin 31.9 pg (25.0-34.0); Mean Corpuscular Hgb Conc 33.5 g/dL (32.0-36.0); Mean Corpuscular Volume 95.1 fL (80.0-100.0); Mean Platelet Volume 9.3 fL (9.4-12.4); Monocytes # (auto) 0.28 K/uL (0.11-0.59); Monocytes % (auto) 3.5 %; Neutrophils # (auto) 6.38 K/uL (1.40-6.50); Neutrophils % (auto) 78.8 %; Nucleated RBC # (auto) 0.03 K/uL (0-0.12); Nucleated RBC % (auto) 0.4 %; Platelet Count 287 K/uL (130-400); RDW Coefficient of Variation 18.4 % (11.5-14.5); RDW Standard Deviation 64.4 fL (36.4-46.3); Red Blood Count 4.11 M/uL (4.20-5.40); White Blood Count 8.09 K/ul (4.8-10.8)
[2022-10-04 07:56] LABS: BUN Creatinine Ratio 11.6 (10-20); Calcium 8.1 mg/dl (8.6-10.3); Est GFR (African American) 130.9 ml/min; Est GFR (Non-African American) 112.9 ml/min; Magnesium 2.3 mg/dl (1.7-2.4); Potassium 4.1 mmol/L (3.5-5.1)
[2022-10-04] MEDS: HEPARIN SOD 5,000 UNIT/0.5 ML VIAL SQ SCH ×2 (08:32→20:36)
[2022-10-04] MEDS: UMECLIDINIUM/VILANTEROL 62.5/25MCG 7 PUFFS/INHALER INH SCH (08:33)
[2022-10-04] MEDS ORDERED: ERGOCALCIFEROL 50,000 UNITS 1250 MCG CAP PO SCH (09:00)
--- NOTE | 2022-10-04 10:04 | Gastrointestinal Consultation ---
Supervising Physician's note Discussed case with Kassidy Watson NP, reviewed records and met with and examined patient. 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 Recent spell with drinking 1 handle every other day of whiskey and quit cold turkey. We are seeing her for persistent nausea and vomiting. Every since she had gastric bypass she has been quick to vomit. She feels when she stopped alcohol it just got worse. She has a sensitive gag reflex as well. She denies pain. Exam unremarkable I think her nausea and vomiting is part of the process of getting off alcohol. She has received a dose of zofran and feels great. I think symptomatic treatment good for now and will do EGD if symptoms persist. Will advance her diet. She understands she needs to quit. Michael Simon Jr, MD, [facility] [place] Date of Consultation October 04, 2022 Assessment & Plan (1) Abdominal pain: Abdominal pain: Patient reports that she has some right upper quadrant tenderness on palpation. Right upper quadrant ultrasound and CT imaging demonstrate possible gallstones and hepatomegaly with evidence of hepatic steatosis. Function testing elevation AST 68, AST 14, alk phos 145, total bilirubin 4.8. Mild leukocytosis 11.01 on admission now 8.09. Would treat sy mptomatically for now with nausea medications and IVFs. We will continue to monitor. Alcohol abuse: Patient reports longstanding history of alcoholism. Alcohol intake worsened for approximately 3 months. From June 2 September. She reports she has had no alcohol consumption since 09/12/2022. She did do this cold turkey. Total bilirubin elevation likely consistent with her alcohol abuse. We will co ntinue to monitor anticipate downward trend. Case reviewed with Dr. Simon. Please refer to supervising physician addendum for further recommendations. I have spent 30 minutes of discrete time performing the activities of this visit which include but are not limited to review of the medical record, obtaining a history, physical exam, and entering information in the electronic record. (2) Alcohol abuse: History of Present Illness Attending Physician: Arlen Potts MD History of Present Illness The patient is a charles 57-year-old female with past medical history to include COPD, tobacco abuse, pulmonary nodules, sinusitis, and alcoholism. Subsequently admitted to abdominal pain coming acute on chronic COPD, chest pain. GI service was consulted due to abdominal pain. The patient reports that she is an alcoholic. She states that she drinks as much as "a handle" of whiskey every 2 and half days. She has been drinking this amount since 06/2023. Prior to that she was drinking 3-4 beers nightly. Her mother stays with her from November to June each year before returning to [place]. She reports she has been in rehab x2 previously for her alcoholism. She states she just decided to stop drinking as it no longer tasted good. She has been having some weakness since 06/2022. This worsened after discontinuing alcohol. She states she has been experiencing anorexia, inability to eat, sleeping all day, and vomiting. Denies any fever, chills, night sweats. She has lost 30 pounds per her report. Is experiencing nausea and vomiting dry heaves as an outpatient. She denies any nausea or vomiting since inpatient. Denies abdominal pain but does note right upper quadrant tenderness with palpation. Small bowel movement about 2 days ago. Denies melena or hematochezia although stools were a burnt orange in color. She is a former smoker. He is smoking about 0.25 packs of cigarettes each day. Denies recreational drugs including marijuana. Alcoholism as noted above. 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 She is with 2 adult children. Allergies Allergy/AdvReac Type Severity Reaction Status Date / Time No Known Allergies Allergy Verified 07/26/22 10:39 Home Medications Medication Instructions Recorded Confirmed Type albuterol sulfate 90 mcg/actuation 2 puff inhalation Q6H PRN 06/06/20 10/03/22 History aerosol inhaler Shortness Of Breath levothyroxine 100 mcg capsule 88 mcg PO DAILY 06/06/20 10/03/22 History biotin 10 mg tablet 10 mg PO DAILY 04/27/22 10/03/22 History cyanocobalamin (vitamin B-12) 1,000 mcg PO DAILY 04/27/22 10/03/22 History 1,000 mcg tablet ergocalciferol (vitamin D2) 1,250 1,250 mcg PO DAILY 04/27/22 10/03/22 History mcg (50,000 unit) capsule omeprazole 20 mg capsule,delayed 20 mg PO DAILY PRN Other 04/27/22 10/03/22 History release vortioxetine 20 mg tablet 20 mg PO DAILY 04/27/22 10/03/22 History (Trintellix) umeclidinium 62.5 mcg-vilanterol See Rx Instructions .Route 06/28/22 10/03/22 Rx 25 mcg/actuation lanidr for .COMPLEX #60 ea inhalation (Anoro Ellipta) cyanocobalamin (vitamin B-12) 1,000 mcg IM DIRECTED 10/03/22 10/03/22 History 1,000 mcg/mL injection kit Patient History Medical History (Updated 10/03/22 @ 18:49 by Yung Vitale MD) History of anxiety History of depression Surgical History (Updated 06/06/20 @ 14:23 by TARAN Randall) History of gastric bypass Family History (Updated 06/06/20 @ 14:24 by TARAN Randall) Other Asthma Diabetes Denies family history of Tuberculosis Lung disease Cancer Social History (Updated 06/06/20 @ 14:23 by TARAN Randall) Smoking Status: Former smoker Tobacco Type: Cigarettes packs per day: 0.5; Cigarettes Per Day: 5; Smoking End Date: 09/12/2022; Second Hand Exposure: No; Do You Dip or Chew Tobacco: No; Tobacco Cessation Education Requested by Patient: No Hx Alcohol Use: Yes Alcohol type: hard liquor Hx Substance Use: No Preferred Language: Kazakh Glue Specialty Supervisor Required: No Beliefs That Will Affect Care: None Current Living Situation: Alone Other Information That Helps Us Care for You: No Feels Safe at Home: Yes Safety Concerns: Feels Safe At This Time Assistive Devices: Glasses Review of Systems Review of Systems: All systems reviewed & are unremarkable except as noted in Subjective Physical Exam Constitutional: WD/WN, vitals as above Eyes: PERRL, conjunctivae normal, anicteric sclerae Neck: trachea midline, no thyromegaly Respiratory: normal respiratory effort, lungs clear to auscultation Cardiovascular: RRR, no murmur, no edema Gastrointestinal (Abdomen): Inspection/Auscultation: abdomen normal to inspection and normal bowel sounds; abdomen not distended Percussion/Palpation: + abdomen tender (RUQ with palpation), abdomen soft and + hepatomegaly; no guarding and abdomen not rigid Skin: no rashes, warm and dry Neurologic: PERRL, EOMI, accommodation nl, no face palsy, no dysarthria Psychiatric: A+Ox3, euthymic affect Results & Data Vital Signs (Past 12 Hours) Vital Signs Temp Pulse Resp BP BP Pulse Ox O2 Del Method 10/04/22 07:55 Nasal Cannula 10/04/22 07:23 37.0 C 81 15 120/81 95 Nasal Cannula 10/04/22 05:12 37.0 C 83 16 138/82 94 Room Air 10/04/22 01:45 37.1 C 83 18 156/87 H 94 Nasal Cannula O2 Flow Rate 10/04/22 07:55 2 10/04/22 07:23 3 10/04/22 05:12 10/04/22 01:45 2 Laboratory Results Laboratory Results - last 24 hr 10/03/22 10/03/22 10/03/22 15:55 15:55 15:55 WBC 11.01 H RBC 4.66 Hgb 15.3 Hct 43.5 MCV 93.3 MCH 32.8 MCHC 35.2 RDW Std Deviation 62.9 H RDW Coeff of Denia 18.4 H Plt Count 332 MPV 9.2 L Immature Gran % (Auto) 1.8 Neut % (Auto) 64.4 Lymph % (Auto) 20.6 [place] % (Auto) 11.5 Eos % (Auto) 0.9 Baso % (Auto) 0.8 Neut # (Auto) 7.08 H Lymph # (Auto) 2.27 [place] # (Auto) 1.27 H Eos # (Auto) 0.10 Baso # (Auto) 0.09 Immature Gran # (Auto) 0.20 Absolute Nucleated RBC 0.06 Nucleated RBC % (auto) 0.5 PT 11.4 INR 1.0 Sodium 134 L Potassium 3.1 L Chloride 94 L Carbon Dioxide 27 Anion Gap 13 H BUN 7 Creatinine 0.60 Est Cr Clr Drug Dosing 126.2 Est GFR ( Amer) 117.3 Est GFR (Non-Af Amer) 101.2 BUN/Creatinine Ratio 11.7 Glucose 131 H Calcium 9.3 Phosphorus 3.1 Magnesium 1.6 L Total Bilirubin 4.8 H AST 68 H ALT 14 Alkaline Phosphatase 145 H Total Creatine Kinase 19 L Troponin I High Sens 5.4 Total Protein 6.7 Albumin 3.4 Globulin 3.3 Albumin/Globulin Ratio 1.0 Vitamin B12 Folate Procalcitonin TSH Free T4 Urine Color Urine Appearance Urine pH Ur Specific [place] Urine Protein Urine Glucose (UA) Urine Ketones Urine Blood Urine Nitrite Urine Bilirubin Urine Urobilinogen Ur Leukocyte Esterase Urine WBC (Auto) Urine RBC (Auto) U Hyaline Cast (Auto) U Epithel Cells (Auto) Urine Bacteria (Auto) Urine Mucus SARS-CoV-2, RNA, NAAT 10/03/22 10/03/22 10/03/22 15:55 15:55 15:55 WBC RBC Hgb Hct MCV MCH MCHC RDW Std Deviation RDW Coeff of Denia Plt Count MPV Immature Gran % (Auto) Neut % (Auto) Lymph % (Auto) [place] % (Auto) Eos % (Auto) Baso % (Auto) Neut # (Auto) Lymph # (Auto) [place] # (Auto) Eos # (Auto) Baso # (Auto) Immature Gran # (Auto) Absolute Nucleated RBC Nucleated RBC % (auto) PT INR Sodium Potassium Chloride Carbon Dioxide Anion Gap BUN Creatinine Est Cr Clr Drug Dosing Est GFR ( Amer) Est GFR (Non-Af Amer) BUN/Creatinine Ratio Glucose Calcium Phosphorus Magnesium Total Bilirubin AST ALT Alkaline Phosphatase Total Creatine Kinase Troponin I High Sens Total Protein Albumin Globulin Albumin/Globulin Ratio Vitamin B12 > 1500 H Folate 10.74 Procalcitonin 0.47 TSH 7.898 H Free T4 1.15 Urine Color Urine Appearance Urine pH Ur Specific [place] Urine Protein Urine Glucose (UA) Urine Ketones Urine Blood Urine Nitrite Urine Bilirubin Urine Urobilinogen Ur Leukocyte Esterase Urine WBC (Auto) Urine RBC (Auto) U Hyaline Cast (Auto) U Epithel Cells (Auto) Urine Bacteria (Auto) Urine Mucus SARS-CoV-2, RNA, NAAT 10/03/22 10/04/22 10/04/22 18:20 02:20 07:12 WBC 8.09 RBC 4.11 L Hgb 13.1 Hct 39.1 MCV 95.1 MCH 31.9 MCHC 33.5 RDW Std Deviation 64.4 H RDW Coeff of Denia 18.4 H Plt Count 287 MPV 9.3 L Immature Gran % (Auto) 3.0 Neut % (Auto) 78.8 Lymph % (Auto) 14.2 [place] % (Auto) 3.5 Eos % (Auto) 0.0 Baso % (Auto) 0.5 Neut # (Auto) 6.38 Lymph # (Auto) 1.15 L [place] # (Auto) 0.28 Eos # (Auto) 0.00 Baso # (Auto) 0.04 Immature Gran # (Auto) 0.24 H Absolute Nucleated RBC 0.03 Nucleated RBC % (auto) 0.4 PT INR Sodium Potassium Chloride Carbon Dioxide Anion Gap BUN Creatinine Est Cr Clr Drug Dosing Est GFR ( Amer) Est GFR (Non-Af Amer) BUN/Creatinine Ratio Glucose Calcium Phosphorus Magnesium Total Bilirubin AST ALT Alkaline Phosphatase Total Creatine Kinase Troponin I High Sens Total Protein Albumin Globulin Albumin/Globulin Ratio Vitamin B12 Folate Procalcitonin TSH Free T4 Urine Color Dark Yellow Urine Appearance Clear Urine pH 6.5 Ur Specific [place] > 1.045 H Urine Protein Negative Urine Glucose (UA) Negative Urine Ketones 2+ H Urine Blood Negative Urine Nitrite Positive A Urine Bilirubin 2+ H Urine Urobilinogen Positive H Ur Leukocyte Esterase Negative Urine WBC (Auto) 1-5 Urine RBC (Auto) 0-4 U Hyaline Cast (Auto) 1-5 U Epithel Cells (Auto) >30 H Urine Bacteria (Auto) Negative Urine Mucus Present A SARS-CoV-2, RNA, NAAT NEGATIVE 10/04/22 07:12 WBC RBC Hgb Hct MCV MCH MCHC RDW Std Deviation RDW Coeff of Denia Plt Count MPV Immature Gran % (Auto) Neut % (Auto) Lymph % (Auto) [place] % (Auto) Eos % (Auto) Baso % (Auto) Neut # (Auto) Lymph # (Auto) [place] # (Auto) Eos # (Auto) Baso # (Auto) Immature Gran # (Auto) Absolute Nucleated RBC Nucleated RBC % (auto) PT INR Sodium 135 L Potassium 4.1 D Chloride 100 Carbon Dioxide 27 Anion Gap 8 BUN 5 L Creatinine 0.43 L Est Cr Clr Drug Dosing 176.0 Est GFR ( Amer) 130.9 Est GFR (Non-Af Amer) 112.9 BUN/Creatinine Ratio 11.6 Glucose 125 H Calcium 8.1 L Phosphorus Magnesium 2.3 Total Bilirubin AST ALT Alkaline Phosphatase Total Creatine Kinase Troponin I High Sens Total Protein Albumin Globulin Albumin/Globulin Ratio Vitamin B12 Folate Procalcitonin TSH Free T4 Urine Color Urine Appearance Urine pH Ur Specific [place] Urine Protein Urine Glucose (UA) Urine Ketones Urine Blood Urine Nitrite Urine Bilirubin Urine Urobilinogen Ur Leukocyte Esterase Urine WBC (Auto) Urine RBC (Auto) U Hyaline Cast (Auto) U Epithel Cells (Auto) Urine Bacteria (Auto) Urine Mucus SARS-CoV-2, RNA, NAAT Diagnostic Findings Chest X-Ray 10/03/22 16:13 XR chest 1V portable CLINICAL HISTORY: weakness COMPARISON STUDY: Chest radiograph October 12, 2019. FINDINGS: Lung volumes are normal. Lungs are clear. There is no pneumothorax or pleural effusion. Cardiac size is normal. Mediastinal contours are normal. There is no evidence for pulmonary edema. IMPRESSION: No acute cardiopulmonary findings. ACT 112: Negative or not required by law. Electronically signed by: Hank Jeffers M.D. 10/03/2022 5:01 PM Liver Ultrasound 10/03/22 18:31 US liver CLINICAL HISTORY: Nausea and vomiting. Elevated bilirubin. COMPARISON STUDY: No previous studies for comparison. FINDINGS: Hepatic echogenicity is increased. There is mild hepatomegaly. No hepatic lesions are identified. Several suspected gallstones within the g allbladder are present. There is no gallbladder wall thickening. No sonographic Goldstein sign was elicited. The pancreas is obscured by overlying bowel gas. A normal-appearing common bile duct is not visualized. There is no intrahepatic biliary ductal dilatation. There is an indeterminate tubular anechoic structure measuring at least 7.8 x 2.2 cm along the left lobe of the liver. This appears to be separate from the gallbladder. The pancreas is obscured by bowel gas. There is no right hydronephrosis. IMPRESSION: 1. Hepatic steatosis and mild hepatomegaly. 2. Probable cholelithiasis. No evidence for acute cholecystitis. 3. Tubular anechoic structure measuring at least 7.8 x 2.2 cm along the left lobe of the liver which appears to be separate from the gallbladder. This is indeterminate and could represent a portion of the bowel. Although less likely, a dilated common bile duct cannot be completely excluded. A cystic lesion is also within the differential. A CT of the abdomen with IV contrast is recommended for further evaluation. 4. Obscured pancreas. ACT 112: Negative or not required by law. Electronically signed by: Hank Jeffers M.D. 10/03/2022 7:45 PM Abdomen/Pelvis CT 10/03/22 20:00 Exam(s): CT ABDOMEN + PELVIS With Contrast IV Amt: 93 ml optiray 320 EXAM: CT Abdomen and Pelvis With Intravenous Contrast CLINICAL HISTORY: abn US f/u, elevated bili, ab pain. TECHNIQUE: Axial computed tomography images of the abdomen and pelvis with intravenous contrast. Automated exposure control was utilized for the study. A dose lowering technique was utilized adhering to the principles of ALARA. CONTRAST: Patient received 93 ml optiray 320 of IV contrast COMPARISON: The reported previous ultrasound is unavailable for review at the time of image interpretation. No pertinent prior imaging available. FINDINGS: Lung bases: Unremarkable. No mass. No consolidation. ABDOMEN: Liver: Hepatomegaly with evidence of hepatic steatosis. No focal intrahepatic abnormality definitively identified. Gallbladder and bile ducts: There are granular subcentimeter hyperdense presumed gallstones noted layering posteriorly in the gallbladder. The gallbladder is only mildly filled with fluid. No gallbladder wall thickening identified. No biliary dilatation. Pancreas: The pancreas demonstrates normal enhancement. No peripancreatic inflammation. No ductal dilation. Spleen: Unremarkable. No splenomegaly. Adrenals: Unremarkable. No mass. Kidneys and ureters: Unremarkable. No solid mass. No hydronephrosis. Stomach and bowel: Postsurgical changes consistent with previous gastric bypass. No bowel obstruction. No definite asymmetric bowel mucosal abnormality, accounting for regions of colonic decompression. No diverticulosis. PELVIS: Appendix: A normal caliber appendix is noted medial to the cecum in the right lower quadrant. Bladder: Unremarkable. No mass. Reproductive: Unremarkable as visualized. ABDOMEN and PELVIS: Intraperitoneal space: Unremarkable. No free air. No significant fluid collection. Bones/joints: No acute fracture. No dislocation. Soft tissues: Unremarkable. Vasculature: Unremarkable. No abdominal aortic aneurysm. Lymph nodes: Unremarkable. No enlarged lymph nodes. IMPRESSION: 1. Hepatomegaly with evidence of hepatic steatosis. No focal intrahepatic abnormality definitively identified. 2. There are granular subcentimeter hyperdense presumed gallstones noted layering posteriorly in the gallbladder. The gallbladder is only mildly filled with fluid. No gallbladder wall thickening identified. No biliary dilatation. Electronically signed by: Grzegorz Westbrook MD 10/03/22 22:51 PM
--- NOTE | 2022-10-04 11:18 | Electrocardiogram Report ---
Test Reason : Blood Pressure : / mmHG Vent. Rate : 093 BPM Atrial Rate : 093 BPM P-R Int : 144 ms QRS Dur : 082 ms QT Int : 394 ms P-R-T Axes : 069 088 056 degrees QTc Int : 489 ms Normal sinus rhythm ST depression in multiple leads , consider ischemia Prolonged QT Abnormal ECG No previous ECGs available Confirmed by Savage Smith ([id number]) on 10/04/2022 11:18:07 AM Referred By: REFERRED SELF Confirmed By:Savage Smith
[2022-10-04] MEDS: PANTOprazole 40 MG in SYRINGE 0 ML IV SCH (11:37)
[2022-10-04 17:09] LABS: Ferritin 174.6 ng/ml (8-388)
[2022-10-05] MEDS: LEVOTHYROXINE SODIUM 88 MCG TABLET PO SCH (06:06)
--- NOTE | 2022-10-05 08:12 | Hospitalist Progress Note ---
Date of Service October 05, 2022 Assessment & Plan (1) Abdominal pain: Plan: 57 year old female w/ past medical history of alcoholism (approx a handle every 2 days but has since stopped drinking, last ingestion 22 days ago 09/12), COPD and asthma, gastric bypass, and OCD presented with several weeks of nausea and weakness. On exam had RUQ abdominal pain to palpation. Neuro exam showed right side lower limb weakness compared to left consistent with patient's report of generalized weakness worst in her right leg. Advanced to normal diet today, tolerated well. 2 step showed patient dropping to 85% O2 with exertion, echo performed to evaluate for cardiac cause. Nausea and abdominal pain with AUD: - 21 days out low suspicion for DTs/withdrawal, she has never had a seizure or DTs in the past. -On admission - mildly elevated liver enzymes (AST 68, ALT normal at 14) -unremarkable imaging (liver ultrasound and abd CT 10/03). Bilirubin 4.8, AST 68, ALT 14 -- Repeat CMP in AM - Per GI, recommend supportive care for now with fluids and nausea management, - Zofran as needed - PPI IV daily - Resume regular diet - Nausea likely from AUD - Fluids reduced to 60ml/hr Concern of Acute on chronic COPD, asthma overlap exacerbation Hypoxia on admission Saw pulmonary 07/2022. - reports she felt she was breathing actually much better last few days. Given a dose of methylpred on admission. - O2 2L NC - wean as tolerated. - 2 step 10/05 showed O2 sats dropping to 85% - echo performed 10/05 -- - Continue home inhalers. Patient educated on consistent use of the maintenance inhaler. Generalized weakness: - generalized weakness since the end of June; - worse since she quit drinking at the beginning of September. TSH elevated with normal free T4 - ensure med compliance on discharge - [facility] 04/2022 - mild nonobstructive ds - BNP elevated at 136 - Check Ferritin level considering h/o Gastric bypass - Hgb continues to drop (15 -> 13 -> 11.9 today) - CBC, BMP, in AM - Consider PT/OT Weight loss: - Lost close to 12kg in the last 6 weeks, since her last appointment with her PCP. -Due to her nausea she has had poor PO intake for several weeks. -She reports having had <1 meal per day. Yesterday she had 1/2 a bottle of ensure. - Protein and albumin w/in normal limits Hypothyroidism TSH 7. Suspect inability to stay compliant likely causing. Should recheck in 2-3 wks. - Synthroid continued Obsessive-compulsive disorder Bupropion, BuSpar, Trintellix continued S/p gastric surgery - GI consulted, see above for recs Sleep apnea - CPAP Disposition: Medical/surgical Electrolytes: Potassium 3.1, repleated to 4.1; Magnesium 1.6, repleted to 2.3 Diet: Clear liquid CODE STATUS: Full code (2) COPD (chronic obstructive pulmonary disease): (3) Tobacco abuse: (4) Pulmonary nodule: Admission and Anticipated Discharge Date Admission Date: October 03, 2022 Subjective 10/05: This morning Magnolia is feeling well. She tolerated clear liquids well last night with no episodes of vomiting and minimal nausea. She had a bowel movement last night that was a small amount of liquid. She is not complaining of any pain. Physical Exam Physical Exam: Constitutional: Patient in no acute distress Eyes: PERRL, conjunctivae normal, anicteric sclerae Respiratory: normal respiratory effort, lungs clear to auscultation Cardiovascular: RRR, no murmur, no edema Gastrointestinal (Abdomen): normal bowel sounds. Tender to palpation in RUQ and epigastric area. Hepatomegaly. Soft, no guarding or rigidity. Skin: no rashes, warm and dry. Bruising present on forearms Neurologic: PERRL, EOMI, no face palsy, no dysarthria. Psychiatric: A+Ox3, euthymic affect Results & Data Results & Data Vital Signs (Past 12 Hours) Vital Signs Temp Pulse Resp BP BP Pulse Ox O2 Del Method 10/05/22 07:19 36.7 C 85 16 115/77 92 Nasal Cannula 10/04/22 21:13 Nasal Cannula 10/04/22 20:55 36.7 C 90 17 120/71 94 Nasal Cannula O2 Flow Rate 10/05/22 07:19 2 10/04/22 21:13 2 10/04/22 20:55 (2) COPD (chronic obstructive pulmonary disease) COPD type: unspecified COPD Qualified Code(s): J44.9 - Chronic obstructive pulmonary disease, unspecified
[2022-10-05 08:13] LABS: Basophils # (auto) 0.04 K/uL (0-0.2); Basophils % (auto) 0.5 %; Eosinophils % (auto) 1.1 %; Hematocrit (blood only) 36.1 % (37.0-47.0); Hemoglobin 11.9 g/dl (12.0-16.0); Immature Granulocytes # (auto) 0.16 K/uL (0.01-0.20); Immature Granulocytes % (auto) 1.8 %; Lymphocytes # (auto) 1.91 K/uL (1.2-3.4); Lymphocytes % (auto) 21.9 %; Mean Corpuscular Hemoglobin 32.2 pg (25.0-34.0); Mean Corpuscular Volume 97.6 fL (80.0-100.0); Mean Platelet Volume 9.5 fL (9.4-12.4); Monocytes # (auto) 1.24 K/uL (0.11-0.59); Monocytes % (auto) 14.2 %; Neutrophils # (auto) 5.27 K/uL (1.40-6.50); Neutrophils % (auto) 60.5 %; Platelet Count 293 K/uL (130-400); RDW Coefficient of Variation 18.6 % (11.5-14.5); RDW Standard Deviation 66.5 fL (36.4-46.3); White Blood Count 8.72 K/ul (4.8-10.8)
[2022-10-05 08:38] LABS: BUN Creatinine Ratio 10.6 (10-20); Calcium 8.2 mg/dl (8.6-10.3); Est GFR (African American) 127.1 ml/min; Est GFR (Non-African American) 109.6 ml/min; Potassium 3.4 mmol/L (3.5-5.1)
[2022-10-05] MEDS: HEPARIN SOD 5,000 UNIT/0.5 ML VIAL SQ SCH (08:48)
[2022-10-05] MEDS: UMECLIDINIUM/VILANTEROL 62.5/25MCG 7 PUFFS/INHALER INH SCH (08:48)
--- NOTE | 2022-10-05 08:57 | Gastroenterology Progress Note ---
Supervising Physician's note Case reviewed with Kassidy Watson NP, chart reviewed, patient discharged before I could see her. See Kassidy's note for full details from today. I am okay with discharge Michael Simon Jr, MD, FACG Date of Service October 05, 2022 Assessment & Plan (1) Abdominal pain: Plan: Abdominal pain: Right upper quadrant ultrasound and CT imaging demonstrate possible gallstones and hepatomegaly with evidence of hepatic steatosis. RUQ pain significantly improved from yesterday. Alcohol abuse: Patient reports longstanding history of alcoholism. Alcohol intake worsened for approximately 3 months from June to September. She reports she has had no alcohol consumption since 09/12/2022. She plans to stay with her mother out near [place] at discharge and is agreeable to outpatient alcohol counseling. Case reviewed with Dr. Simon. Please refer to supervising physician addendum for further recommendations. I have spent 15 minutes of discrete time performing the activities of this visit which include but are not limited to review of the medical record, obtaining a history, physical exam, and entering information in the electronic record. (2) Alcohol abuse: Admission and Anticipated Discharge Date Admission Date: October 03, 2022 Subjective Patient awake alert and oriented tolerating clear liquid diet this morning. She denies continued nausea, vomiting. Did try to move her bowels through the night but had small amount of liquid. No complaints this morning. Review of Systems Review of Systems: All systems reviewed & are unremarkable except as noted in Subjective Physical Exam Gastrointestinal (Abdomen): normal bowel sounds, soft, nontender, no hepatosplenomegaly Results & Data Vital Signs (Past 12 Hours) Vital Signs Temp Pulse Resp BP Pulse Ox O2 Del Method O2 Flow Rate 10/05/22 07:19 36.7 C 85 16 115/77 92 Nasal Cannula 2 10/04/22 21:13 Nasal Cannula 2 Laboratory Results Laboratory Results - last 24 hr 10/03/22 10/04/22 10/04/22 15:55 07:12 16:48 WBC RBC Hgb Hct MCV MCH MCHC RDW Std Deviation RDW Coeff of Denia Plt Count MPV Immature Gran % (Auto) Neut % (Auto) Lymph % (Auto) [place] % (Auto) Eos % (Auto) Baso % (Auto) Neut # (Auto) Lymph # (Auto) [place] # (Auto) Eos # (Auto) Baso # (Auto) Immature Gran # (Auto) Sodium Potassium Chloride Carbon Dioxide Anion Gap BUN Creatinine Est Cr Clr Drug Dosing Est GFR ( Amer) Est GFR (Non-Af Amer) BUN/Creatinine Ratio Glucose Calcium Ferritin Cancelled 174.6 B-Natriuretic Peptide 136 H 10/05/22 10/05/22 07:40 07:40 WBC 8.72 RBC 3.70 L Hgb 11.9 L Hct 36.1 L MCV 97.6 MCH 32.2 MCHC 33.0 RDW Std Deviation 66.5 H RDW Coeff of Denia 18.6 H Plt Count 293 MPV 9.5 Immature Gran % (Auto) 1.8 Neut % (Auto) 60.5 Lymph % (Auto) 21.9 [place] % (Auto) 14.2 Eos % (Auto) 1.1 Baso % (Auto) 0.5 Neut # (Auto) 5.27 Lymph # (Auto) 1.91 [place] # (Auto) 1.24 H Eos # (Auto) 0.10 Baso # (Auto) 0.04 Immature Gran # (Auto) 0.16 Sodium 138 Potassium 3.4 L Chloride 103 Carbon Dioxide 30 Anion Gap 5 BUN 5 L Creatinine 0.47 L Est Cr Clr Drug Dosing 161.0 Est GFR ( Amer) 127.1 Est GFR (Non-Af Amer) 109.6 BUN/Creatinine Ratio 10.6 Glucose 79 Calcium 8.2 L Ferritin B-Natriuretic Peptide
[2022-10-05] MEDS: PANTOprazole 40 MG in SYRINGE 0 ML IV SCH (11:28)
--- NOTE | 2022-10-05 14:45 | Discharge Summary ---
Date of Service October 05, 2022 Admission HPI Per Admitting Provider And is a 57-year-old female with past medical history of COPD, tobacco abuse, pulmonary nodules, and sinusitis who presents with weakness, vomiting in the setting of alcohol cessation Mary reports she is a 'barely recovering alcoholic' went cold turkey September 12. Was drinking a handle over 2 days of whiskey for 2 months. Prior to 2 month swould drink a few beers in the evening with some shots of fireball. Once school went out 'los tit a little bit.' Got through efirst 2-3 day with no seizures, no DTs, no tremors 'and no nothing' but has just fel tprogressively more tired and fatigued. Has not been hungry. Vomits at the near thought of food and sleeping all day no fevers or chills No pain, but severe nausea after eating BMs often very loose and ark orange. No melena/coffee ground BMS Urine has been very dark orange No chest pain or chest pressure No liver problems to her knowledge, no hsitory of cholecystectomy Hx of gastric bipass 2004. Trintellex for depression, works well Medical History: Reviewed Medications: Reviewed Surgical History: Reviewed Family history: Reviewed Allergies: Reviewed Social History: Etoh abuse in remission Code Status: Full Code Admission Exam (Per Admitting) Constitutional WD/WN, vitals as above Eyes PERRL, conjunctivae normal, anicteric sclerae ENMT external ear and nose normal, oropharynx normal Neck trachea midline, no thyromegaly Respiratory normal respiratory effort, lungs clear to auscultation Cardiovascular RRR, no murmur, no edema Gastrointestinal (Abdomen) normal bowel sounds, soft, nontender, no hepatosplenomegaly Inspection/Auscultation: abdomen normal to inspection and normal bowel sounds; abdomen not distended Percussion/Palpation: + abdomen tender (RUQ with palpation), abdomen soft and + hepatomegaly; no guarding and abdomen not rigid Musculoskeletal no cyanosis or clubbing, extremities motor strength 5/5 Skin no rashes, warm and dry Neurologic PERRL, EOMI, accommodation nl, no face palsy, no dysarthria Psychiatric A+Ox3, euthymic affect Lymphatic no cervical or axillary lymphadenopathy Discharge Data Consultations 10/03/22 17:46 ED Decision to Admit Stat 10/04/22 08:49 Consult Gastroenterology Routine Hospital Course (1) Abdominal pain: 57 year old female w/ past medical history of alcoholism (approx a handle every 2 days but has since stopped drinking, last ingestion 22 days ago 09/12), COPD and asthma, gastric bypass, and OCD presented with several weeks of nausea and weakness. Nausea and abdominal pain with AUD:Nausea likely from AUD, improved over course of stay - 21 days out low suspicion for DTs/withdrawal, she has never had a seizure or DTs in the past. -On admission - mildly elevated liver enzymes (AST 68, ALT normal at 14) -unremarkable imaging (liver ultrasound and abd CT 10/03). - GI consulted, did not consider EGD necessary at this time - Recommended supportive care with fluids, PPIs, zofran. - Diet was progressed gradually over course of stay, patient tolerated well. -Patient discharged with zofran Concern of Acute on chronic COPD, asthma overlap exacerbation Hypoxia on admission Saw pulmonary 07/2022 -- per pulm, patient has severe obstruction. - reports she felt she was breathing actually much better last few days. Given a dose of methylpred on admission. - Continue home inhalers: Anoro and albuterol - Patient reports non-compliance with maintenance inhaler due to cost. Patient provided with voucher and counseled on necessity of using maintenance inhaler consistently every day. Hypoxia - 2 step performed 10/05 showed patient dropping to 85% O2 while walking -Echo obtained 04/22 technically difficult to perform. Reattempted inpatient 10/05 to evaluate for pulmonary hypertension -- study was again difficult to perform. Function and size of heart was generally normal, with mildly reduced RVEF, but degree of pulmonary hypertension could not be assessed. Spoke with water plant operator, who recommended SUKHDEV as next step. -Patient discharged on home oxygen 2L [place] Generalized weakness: - generalized weakness since the end of June; - worse since she quit drinking at the beginning of September. TSH elevated with normal free T4 - f/u outpatient for medication compliance - [facility] 04/2022 - mild nonobstructive ds - Cardiac cath performed 04/27 ruled out heart disease Weight loss: - Lost close to 12kg in the last 6 weeks, since her last appointment with her PCP. Due to her nausea she has had poor PO intake for several weeks. - Protein and albumin w/in normal limits - Patient's food tolerance has improved Hypothyroidism TSH 7. Suspect inability to stay compliant likely causing. Should recheck in 2-3 wks. - Synthroid continued Obsessive-compulsive disorder Bupropion, BuSpar, Trintellix continued S/p gastric surgery - GI consulted, see above for recs Sleep apnea - CPAP (2) COPD (chronic obstructive pulmonary disease): (3) Tobacco abuse: (4) Pulmonary nodule: Supervising Physician Co-Signing Physician Notes Medical Student Supervision Note: I was personally present during medical student patient encounter and independently interviewed and examined the patient and verified the alva history and physical, reviewed labs and image studies, discussed the case with China Guzman and agree with the findings and care plan. Intractable nausea with weight loss in setting of AUD - kept on IVF, bowel rest, symptoms improved. Tolerated diet Severe COPD with mild exacerbation - Received a dose of IV steroids. encouraged compliance with home meds. New onset Hypoxia - possibly from severe copd. echo - limited study due to body habitus. to consider getting SUKHDEV to get better idea on pul artery pressure.
--- NOTE | 2022-10-05 16:50 | XCELERA ---
[id number] [id number]
== END 2022-10-05 18:56 | disposition home or self-care (01) ==
LOC: ED 15:30 → 3W 15:30 → SUATTDRO 18:45 → 3W 20:32